=== PATIENT | female | born 1990 | race Two or more races ===

== ENCOUNTER 2017-11-03 06:44 | Day surgery (SDC) | payer OTHER ==
[~2017-11-03 06:44] MED LIST: CIPRO500 MG; DOLOGESIC CAPLE1 TAB; FLAGYL375 MG; FLAGYL500MG; HIBICLENS118 ML TP; INTESTINEX1 CAP PO; MOTRIN800 MG PO; NASONEX17 GM NS; PERCOCET 10-3251 TAB; SEPTRA 80/400 T1 TAB; SEPTRA DS TABLE1 TAB PO; ZITHROMAX TRI-500 MG PO; ZITHROMAX500 MG PO; ZYNCOF 20-400120 ML PO
== END 2017-11-03 10:35 | disposition home or self-care (01) ==
LOC: AMB-ENDOS 06:44 → CIR.AMB 09:30 → AMB-ENDOS 09:30
DX: K50.10 Crohn's disease of large intestine without complications (principal); K63.89 Other specified diseases of intestine

== ENCOUNTER → 2018-07-09 | Emergency (ER) | payer OTHER ==
[~2018-07-09] VITALS: Ht 157.5 cm; Wt 67.1 kg
== END | disposition left against medical advice (07) ==
LOC: ER 11:12
DX: Z53.20 Procedure and treatment not carried out because of patient's decision for unspecified reasons (principal)

== ENCOUNTER 2018-10-26 08:56 | Outpatient (CLI) | payer OTHER | END 2018-10-26 09:07 | disposition home or self-care (01) | LOC: TOM 08:56 | DX: N13.4 Hydroureter (principal) ==

== ENCOUNTER 2018-10-26 10:55 | Outpatient (CLI) | payer OTHER | END 2018-10-26 20:16 | disposition home or self-care (01) | LOC: LAB 10:55 | DX: N30.00 Acute cystitis without hematuria (principal) ==

== ENCOUNTER 2018-11-13 13:13 | Emergency (ER) | payer OTHER ==
[~2018-11-13] VITALS: Ht 157.5 cm; Wt 63.5 kg
[2018-11-13] MEDS ORDERED: HYDRALAZINE HCL25 MG (13:36)
[2018-11-13] MEDS ORDERED: TOPROL XL25 M1 (13:36)
== END 2018-11-13 19:50 | disposition home or self-care (01) ==
LOC: ER 13:13
DX: J35.01 Chronic tonsillitis (principal); R13.19 Other dysphagia; R07.0 Pain in throat

== ENCOUNTER 2019-01-30 07:06 | Outpatient (CLI) | payer OTHER ==
[~2019-01-30 07:06] MED LIST changes: +HYDRALAZINE HCL25 MG; +TOPROL XL25 M1
== END 2019-01-30 07:16 | disposition home or self-care (01) ==
LOC: LAB 07:06
DX: N13.4 Hydroureter (principal)

== ENCOUNTER 2019-01-31 09:10 | Outpatient (CLI) | payer OTHER | END 2019-01-31 09:13 | disposition home or self-care (01) | LOC: TOM 09:10 | DX: N13.4 Hydroureter (principal) ==

== ENCOUNTER 2019-02-27 09:59 | Outpatient (CLI) | payer OTHER | END 2019-02-27 10:13 | disposition home or self-care (01) | LOC: RX STUDY 09:59 | DX: R13.19 Other dysphagia (principal) ==

== ENCOUNTER 2019-03-23 20:16 | Day surgery (SDC) | payer OTHER ==
[~2019-03-23] VITALS: Ht 157.5 cm; Wt 68.9 kg
[2019-03-23] MEDS ORDERED: MILLIPRED5 MG (20:39)
== END 2019-03-24 13:00 | disposition home or self-care (01) ==
LOC: ER 20:16 → CIR.AMB 03-24 07:00 → SEC-K 03-24 08:41 → ER 03-24 08:41 → O/R 03-24 08:41 → EDSTATUS 03-24 11:30 → SEC-K 03-24 12:51 → O/R 03-24 12:51 → CIR.AMB 03-24 13:00 → O/R 03-24 17:40
DX: T83.091A Other mechanical complication of indwelling urethral catheter, initial encounter (principal)

== ENCOUNTER 2019-04-10 18:04 | Emergency (ER) | payer OTHER ==
[~2019-04-10] VITALS: Ht 157.5 cm; Wt 68.0 kg
[~2019-04-10 18:04] MED LIST changes: +MILLIPRED5 MG
[2019-04-10] MEDS ORDERED: FLAGYL500MG PO (21:40)
[2019-04-10] MEDS ORDERED: CIPRO500 MG PO (21:40)
== END 2019-04-10 21:46 | disposition home or self-care (01) ==
LOC: ER 18:04
DX: N39.0 Urinary tract infection, site not specified (principal)

== ENCOUNTER 2019-04-28 08:03 | Outpatient (CLI) | payer OTHER ==
[~2019-04-28 08:03] MED LIST changes: +CIPRO500 MG PO; +FLAGYL500MG PO
== END 2019-04-28 13:21 | disposition home or self-care (01) ==
LOC: LAB 08:03
DX: N13.4 Hydroureter (principal); N30.00 Acute cystitis without hematuria

== ENCOUNTER 2019-06-06 10:21 | Outpatient (CLI) | payer OTHER | END 2019-06-06 15:00 | disposition home or self-care (01) | LOC: LAB 10:21 | DX: N20.0 Calculus of kidney (principal) ==

== ENCOUNTER → 2019-06-07 | Outpatient (CLI) | payer OTHER | END | disposition home or self-care (01) | LOC: MRI 07:15 | DX: Q39.3 Congenital stenosis and stricture of esophagus (principal) | CPT/HCPCS: 72142; 72147 ==

== ENCOUNTER 2019-07-10 09:25 | Outpatient (CLI) | payer OTHER | END 2019-07-10 09:32 | disposition home or self-care (01) | LOC: LAB 09:25 | DX: Z92.25 Personal history of immunosuppression therapy (principal); Z11.4 Encounter for screening for human immunodeficiency virus [HIV]; K50.113 Crohn's disease of large intestine with fistula ==

== ENCOUNTER 2019-07-10 10:51 | Outpatient (CLI) | payer OTHER | END 2019-07-10 10:56 | disposition home or self-care (01) | LOC: TOM 10:51 | DX: K50.113 Crohn's disease of large intestine with fistula (principal); Z93.3 Colostomy status; N28.89 Other specified disorders of kidney and ureter; N18.2 Chronic kidney disease, stage 2 (mild); Z92.25 Personal history of immunosuppression therapy; K22.2 Esophageal obstruction ==

== ENCOUNTER 2019-07-26 18:55 | Emergency (ER) | payer OTHER ==
[~2019-07-26] VITALS: Ht 157.5 cm; Wt 70.8 kg
== END 2019-07-26 22:22 | disposition home or self-care (01) ==
LOC: ER 18:55
DX: N39.0 Urinary tract infection, site not specified (principal); R50.9 Fever, unspecified

== ENCOUNTER → 2019-07-26 | Outpatient (CLI) | payer OTHER | END | disposition home or self-care (01) | LOC: TOM 09:15 | DX: N13.4 Hydroureter (principal) ==

== ENCOUNTER 2019-07-29 09:36 | Outpatient (CLI) | payer OTHER | END 2019-07-29 09:44 | disposition home or self-care (01) | LOC: LAB 09:36 | DX: N13.4 Hydroureter (principal) ==

== ENCOUNTER 2019-09-05 08:39 | Outpatient (CLI) | payer OTHER | END 2019-09-05 09:42 | disposition home or self-care (01) | LOC: LAB 08:39 | DX: Z79.52 Long term (current) use of systemic steroids (principal) ==

== ENCOUNTER 2019-09-26 16:29 | Emergency (ER) | payer OTHER ==
[~2019-09-26] VITALS: Ht 157.5 cm; Wt 68.0 kg
[2019-09-26] MEDS ORDERED: STELARA130 MG/26 (16:35)
[2019-09-26] MEDS ORDERED: PRISTIQ ER50 MG (16:36)
[2019-09-26] MEDS ORDERED: NEXIUM40 M1 (16:36)
[2019-09-27] MEDS ORDERED: TYLENOL-CODEINE1 TA1 PO (06:56)
== END 2019-09-26 18:57 | disposition home or self-care (01) ==
LOC: ER 16:29
DX: N39.0 Urinary tract infection, site not specified (principal)

== ENCOUNTER 2019-09-27 00:42 | Emergency (ER) | payer OTHER ==
[~2019-09-27] VITALS: Ht 157.5 cm; Wt 68.0 kg
[~2019-09-27 00:42] MED LIST changes: +NEXIUM40 M1; +PRISTIQ ER50 MG; +STELARA130 MG/26
[2019-09-27] MEDS ORDERED: TYLENOL-CODEINE1 TA1 PO (06:56)
== END 2019-09-27 07:34 | disposition home or self-care (01) ==
LOC: ER 00:42
DX: M54.89 Other dorsalgia (principal)

== ENCOUNTER → 2019-10-10 09:47 | Outpatient (CLI) | payer OTHER ==
[~2019-10-10 09:47] MED LIST changes: +TYLENOL-CODEINE1 TA1 PO
== END | disposition home or self-care (01) ==
LOC: LAB 09:47
DX: N30.00 Acute cystitis without hematuria (principal); N18.9 Chronic kidney disease, unspecified

== ENCOUNTER 2019-10-16 09:10 | Outpatient (CLI) | payer OTHER | END 2019-10-16 09:23 | disposition home or self-care (01) | LOC: LAB 09:10 | DX: N80.0 Endometriosis of uterus (principal) ==

== ENCOUNTER 2019-10-17 12:17 | Outpatient (CLI) | payer OTHER | END 2019-10-17 12:30 | disposition home or self-care (01) | LOC: RAD 12:17 | DX: N13.4 Hydroureter (principal) ==

== ENCOUNTER 2019-10-25 09:15 | Day surgery (SDC) | payer OTHER ==
[~2019-10-25 09:15] MED LIST changes: +LEXAPRO5 MG PO
== END 2019-10-25 16:35 | disposition home or self-care (01) ==
LOC: CIR.AMB 09:15
PROVIDERS: ATTEND Urology
DX: N13.5 Crossing vessel and stricture of ureter without hydronephrosis (principal)

== ENCOUNTER → 2019-11-15 13:36 | Outpatient (CLI) | payer OTHER | END | disposition home or self-care (01) | LOC: LAB 13:36 | PROVIDERS: ATTEND Urology | DX: N30.00 Acute cystitis without hematuria (principal) ==

== ENCOUNTER 2019-11-24 16:57 | Emergency (ER) | payer OTHER ==
[~2019-11-24] VITALS: Ht 157.5 cm; Wt 64.4 kg
== END 2019-11-24 18:34 | disposition home or self-care (01) ==
LOC: ER 16:57
DX: L27.1 Localized skin eruption due to drugs and medicaments taken internally (principal); T43.226A Underdosing of selective serotonin reuptake inhibitors, initial encounter

== ENCOUNTER → 2020-01-08 09:59 | Outpatient (CLI) | payer OTHER ==
[~2020-01-08 09:59] MED LIST changes: +LEVAQUIN500 MG PO; +PRISTIQ25 MG PO
== END | disposition home or self-care (01) ==
LOC: LAB 09:59
PROVIDERS: ATTEND Internal Medicine Nephrology
DX: N18.2 Chronic kidney disease, stage 2 (mild) (principal); R80.0 Isolated proteinuria

== ENCOUNTER 2020-02-05 19:40 | Emergency (ER) | payer OTHER ==
[~2020-02-05] VITALS: Ht 157.5 cm; Wt 70.8 kg
[~2020-02-05 19:40] MED LIST changes: -LEVAQUIN500 MG PO; -PRISTIQ25 MG PO
[2020-02-05] MEDS ORDERED: PRISTIQ25 MG PO (19:54)
[2020-02-06] MEDS ORDERED: LEVAQUIN500 MG PO (06:39)
== END 2020-02-06 06:48 | disposition home or self-care (01) ==
LOC: ER 19:40
DX: N12 Tubulo-interstitial nephritis, not specified as acute or chronic (principal); Z20.828 Contact with and (suspected) exposure to other viral communicable diseases

== ENCOUNTER 2020-02-12 07:45 | Outpatient (CLI) | payer OTHER ==
[~2020-02-12 07:45] MED LIST changes: +LEVAQUIN500 MG PO; +PRISTIQ25 MG PO
== END 2020-02-12 08:02 | disposition home or self-care (01) ==
LOC: LAB 07:45
PROVIDERS: ATTEND Urology
DX: N30.00 Acute cystitis without hematuria (principal); N13.4 Hydroureter

== ENCOUNTER 2020-02-26 10:57 | Outpatient (CLI) | payer OTHER | END 2020-02-26 15:00 | disposition home or self-care (01) | LOC: LAB 10:57 | DX: K50.813 Crohn's disease of both small and large intestine with fistula (principal) ==

== ENCOUNTER → 2020-03-13 09:09 | Outpatient (CLI) | payer OTHER | END | disposition home or self-care (01) | LOC: LAB 09:09 | PROVIDERS: ATTEND Surgery | DX: K50.113 Crohn's disease of large intestine with fistula (principal); K50.118 Crohn's disease of large intestine with other complication; Z93.3 Colostomy status; R13.14 Dysphagia, pharyngoesophageal phase ==

== ENCOUNTER 2020-03-29 08:27 | Outpatient (CLI) | payer OTHER | END 2020-03-29 08:40 | disposition home or self-care (01) | LOC: RX STUDY 08:27 | DX: N28.89 Other specified disorders of kidney and ureter (principal); K50.113 Crohn's disease of large intestine with fistula; Z93.3 Colostomy status; N18.2 Chronic kidney disease, stage 2 (mild); Z92.25 Personal history of immunosuppression therapy ==

== ENCOUNTER → 2020-04-17 09:18 | Outpatient (CLI) | payer OTHER | END | disposition home or self-care (01) | LOC: LAB 09:18 | PROVIDERS: ATTEND Urology | DX: N30.00 Acute cystitis without hematuria (principal) ==

== ENCOUNTER 2020-06-04 08:53 | Outpatient (CLI) | payer OTHER | END 2020-06-04 09:05 | disposition home or self-care (01) | LOC: LAB 08:53 | PROVIDERS: ATTEND Internal Medicine Nephrology | DX: N18.2 Chronic kidney disease, stage 2 (mild) (principal); R80.0 Isolated proteinuria ==

== ENCOUNTER 2020-06-19 10:21 | Outpatient (CLI) | payer OTHER | END 2020-06-19 10:36 | disposition home or self-care (01) | LOC: LAB 10:21 | DX: K50.80 Crohn's disease of both small and large intestine without complications (principal) ==

== ENCOUNTER 2020-06-27 08:46 | Outpatient (CLI) | payer OTHER | END 2020-06-27 10:03 | disposition home or self-care (01) | LOC: LAB 08:46 | PROVIDERS: ATTEND Urology | DX: N30.00 Acute cystitis without hematuria (principal) ==

== ENCOUNTER 2020-07-17 06:00 | Day surgery (SDC) | payer OTHER ==
[~2020-07-17 06:00] MED LIST changes: +NEXIUM40 M1 PO; +QUESTRAN PACKET4 GM PO; +STELARA90 MG/1 ML
== END 2020-07-17 13:15 | disposition home or self-care (01) ==
LOC: CIR.AMB 06:00
PROVIDERS: ATTEND Urology
DX: N13.5 Crossing vessel and stricture of ureter without hydronephrosis (principal); Z20.822 Contact with and (suspected) exposure to COVID-19

== ENCOUNTER 2020-08-24 08:20 | Outpatient (CLI) | payer OTHER | END 2020-08-24 08:28 | disposition home or self-care (01) | LOC: LAB 08:20 | PROVIDERS: ATTEND Internal Medicine Nephrology | DX: M83.1 Senile osteomalacia (principal); N39.8 Other specified disorders of urinary system ==

== ENCOUNTER → 2020-12-07 | Outpatient (CLI) | payer OTHER ==
[~2020-12-07] MED LIST changes: +8HR ARTHRITIS650 M1 PO; +CIPROFLOXACIN500 MG; +ESCITALOPRAM OX10 MG; +NEURONTIN300 MG PO; +SIMETHICONE80 MG PO
== END | disposition home or self-care (01) ==
LOC: LAB 07:57
PROVIDERS: ATTEND Surgery
DX: R13.14 Dysphagia, pharyngoesophageal phase (principal); Z93.3 Colostomy status; K50.118 Crohn's disease of large intestine with other complication; K50.113 Crohn's disease of large intestine with fistula

== ENCOUNTER → 2020-12-26 09:18 | Outpatient (CLI) | payer OTHER | END | disposition home or self-care (01) | LOC: LAB 09:18 | PROVIDERS: ATTEND Urology | DX: N13.4 Hydroureter (principal); N30.00 Acute cystitis without hematuria ==

== ENCOUNTER 2021-01-01 09:00 | Inpatient (IN) | payer OTHER ==
[~2021-01-01] VITALS: Ht 157.5 cm; Wt 71.2 kg
[~2021-01-01 09:00] MED LIST changes: -8HR ARTHRITIS650 M1 PO; -CIPROFLOXACIN500 MG; -ESCITALOPRAM OX10 MG; -NEURONTIN300 MG PO; -SIMETHICONE80 MG PO
[2021-01-08] MEDS ORDERED: ESCITALOPRAM OX10 MG (11:22)
[2021-01-08] MEDS ORDERED: CIPROFLOXACIN500 MG (11:22)
[2021-01-13] MEDS ORDERED: SIMETHICONE80 MG PO (16:25)
[2021-01-13] MEDS ORDERED: NEURONTIN300 MG PO (16:25)
[2021-01-13] MEDS ORDERED: 8HR ARTHRITIS650 M1 PO (16:25)
== END 2021-01-13 17:39 | disposition home or self-care (01) | DRG 329 ==
LOC: O/R 01-08 06:01 → SURH 01-08 07:00 → O/R 01-08 10:42 → SURG 01-10 10:28
PROVIDERS: Surgery; ADMIT Urology; ATTEND Urology
PROC: 0DNW4ZZ Release Peritoneum, Percutaneous Endoscopic Approach (ICD-10-PCS; 2021-01-08)
PROC: 0T174Z7 Bypass Left Ureter to Left Ureter, Percutaneous Endoscopic Approach (ICD-10-PCS; 2021-01-08)
PROC: 0T9B80Z Drainage of Bladder with Drainage Device, Via Natural or Artificial Opening Endoscopic (ICD-10-PCS; 2021-01-08)
PROC: 4A033R1 Measurement of Arterial Saturation, Peripheral, Percutaneous Approach (ICD-10-PCS; 2021-01-08)
PROC: 0BH17EZ Insertion of Endotracheal Airway into Trachea, Via Natural or Artificial Opening (ICD-10-PCS; 2021-01-08)
PROC: 5A1935Z Respiratory Ventilation, Less than 24 Consecutive Hours (ICD-10-PCS; 2021-01-08)
PROC: 0D1E4Z4 Bypass Large Intestine to Cutaneous, Percutaneous Endoscopic Approach (ICD-10-PCS; 2021-01-08)
PROC: 0DBN4ZZ Excision of Sigmoid Colon, Percutaneous Endoscopic Approach (ICD-10-PCS; principal; 2021-01-08 07:00)
PROC: 0TS Urinary System, Reposition (ICD-10-PCS; 2021-01-08 07:00)
PROC: 30233R1 Transfusion of Nonautologous Platelets into Peripheral Vein, Percutaneous Approach (ICD-10-PCS; 2021-01-10)
DX: Z43.3 Encounter for attention to colostomy (principal); J95.821 Acute postprocedural respiratory failure; K50.118 Crohn's disease of large intestine with other complication; E87.2 Acidosis; N13.4 Hydroureter; R13.14 Dysphagia, pharyngoesophageal phase; F41.9 Anxiety disorder, unspecified; K66.0 Peritoneal adhesions (postprocedural) (postinfection); K52.89 Other specified noninfective gastroenteritis and colitis; N35.82 Other urethral stricture, female

== ENCOUNTER 2021-01-18 09:02 | Outpatient (CLI) | payer OTHER ==
[~2021-01-18 09:02] MED LIST changes: +8HR ARTHRITIS650 M1 PO; +CIPROFLOXACIN500 MG; +ESCITALOPRAM OX10 MG; +NEURONTIN300 MG PO; +SIMETHICONE80 MG PO
== END 2021-01-18 13:24 | disposition home or self-care (01) ==
LOC: LAB 09:02
PROVIDERS: ATTEND Urology
DX: N30.00 Acute cystitis without hematuria (principal)

== ENCOUNTER → 2021-02-11 08:58 | Outpatient (CLI) | payer OTHER | END | disposition home or self-care (01) | LOC: LAB 08:58 | PROVIDERS: ATTEND Urology | DX: N13.4 Hydroureter (principal) ==

== ENCOUNTER → 2021-02-21 10:27 | Outpatient (CLI) | payer OTHER | END | disposition home or self-care (01) | LOC: LAB 10:27 | DX: K50.113 Crohn's disease of large intestine with fistula (principal); Z93.3 Colostomy status; N28.89 Other specified disorders of kidney and ureter; N18.2 Chronic kidney disease, stage 2 (mild); Z92.25 Personal history of immunosuppression therapy ==

== ENCOUNTER 2021-02-24 08:26 | Outpatient (CLI) | payer OTHER | END 2021-02-24 08:34 | disposition home or self-care (01) | LOC: SONOGRAMA 08:26 → MAMO-SONO 15:00 | PROVIDERS: ATTEND Urology | DX: N13.4 Hydroureter (principal) ==

== ENCOUNTER → 2021-03-01 09:09 | Outpatient (CLI) | payer OTHER | END | disposition home or self-care (01) | LOC: LAB 09:09 | DX: M83.1 Senile osteomalacia (principal); R80.8 Other proteinuria ==

== ENCOUNTER → 2021-03-04 11:35 | Outpatient (CLI) | payer OTHER | END | disposition home or self-care (01) | LOC: LAB 11:35 | PROVIDERS: ATTEND Urology | DX: N13.39 Other hydronephrosis (principal); N30.00 Acute cystitis without hematuria ==

== ENCOUNTER → 2021-04-03 10:32 | Outpatient (CLI) | payer OTHER | END | disposition home or self-care (01) | LOC: LAB 10:32 | PROVIDERS: ATTEND Urology | DX: E11.9 Type 2 diabetes mellitus without complications (principal); N30.00 Acute cystitis without hematuria ==

== ENCOUNTER 2021-04-21 13:29 | Outpatient (CLI) | payer OTHER | END 2021-04-21 13:39 | disposition home or self-care (01) | LOC: LAB 13:29 | DX: N28.89 Other specified disorders of kidney and ureter (principal); K50.113 Crohn's disease of large intestine with fistula; Z93.3 Colostomy status; N18.2 Chronic kidney disease, stage 2 (mild); Z92.25 Personal history of immunosuppression therapy; R13.19 Other dysphagia ==

== ENCOUNTER 2021-04-29 09:57 | Outpatient (CLI) | payer OTHER | END 2021-04-29 10:10 | disposition home or self-care (01) | LOC: TOM 09:57 | PROVIDERS: ATTEND Urology | DX: N39.0 Urinary tract infection, site not specified (principal); N13.4 Hydroureter ==

== ENCOUNTER 2021-06-26 09:26 | Outpatient (CLI) | payer OTHER | END 2021-06-27 08:10 | disposition home or self-care (01) | LOC: SONOGRAMA 09:26 | PROVIDERS: ATTEND Urology | DX: N39.0 Urinary tract infection, site not specified (principal); N13.4 Hydroureter ==

== ENCOUNTER 2021-06-26 11:25 | Outpatient (CLI) | payer OTHER | END 2021-06-26 11:32 | disposition home or self-care (01) | LOC: LAB 11:25 | PROVIDERS: ATTEND Internal Medicine Nephrology | DX: N18.2 Chronic kidney disease, stage 2 (mild) (principal); R80.0 Isolated proteinuria ==

== ENCOUNTER → 2021-07-03 11:27 | Outpatient (CLI) | payer OTHER | END | disposition home or self-care (01) | LOC: LAB 11:27 | PROVIDERS: ATTEND Urology | DX: N30.00 Acute cystitis without hematuria (principal); N13.4 Hydroureter ==

== ENCOUNTER 2021-08-25 06:55 | Outpatient (CLI) | payer OTHER | END 2021-08-25 07:10 | disposition home or self-care (01) | LOC: LAB 06:55 | PROVIDERS: ATTEND Internal Medicine | DX: K50.813 Crohn's disease of both small and large intestine with fistula (principal) ==

== ENCOUNTER 2021-09-25 09:03 | Outpatient (CLI) | payer OTHER | END 2021-09-25 09:04 | disposition home or self-care (01) | LOC: TOM 09:03 | PROVIDERS: ATTEND Urology | DX: N13.4 Hydroureter (principal) ==

== ENCOUNTER 2021-09-25 10:06 | Outpatient (CLI) | payer OTHER | END 2021-09-25 10:19 | disposition home or self-care (01) | LOC: LAB 10:06 | PROVIDERS: ATTEND Urology | DX: N13.4 Hydroureter (principal) ==

== ENCOUNTER 2021-10-25 10:32 | Emergency (ER) | payer OTHER ==
[~2021-10-25] VITALS: Ht 157.5 cm; Wt 70.3 kg
[2021-10-25] MEDS ORDERED: FLUOXETINE HCL10 M1 PO (12:02)
== END 2021-10-25 16:22 | disposition home or self-care (01) ==
LOC: ER 10:32
DX: N30.91 Cystitis, unspecified with hematuria (principal); Z91.011 Allergy to milk products; Z88.6 Allergy status to analgesic agent; Z93.3 Colostomy status; Z87.19 Personal history of other diseases of the digestive system

== ENCOUNTER 2021-11-20 08:01 | Outpatient (CLI) | payer OTHER ==
[~2021-11-20 08:01] MED LIST changes: +FLUOXETINE HCL10 M1 PO
== END 2021-11-20 08:45 | disposition home or self-care (01) ==
LOC: LAB 08:01
PROVIDERS: ATTEND Internal Medicine
DX: K50.014 Crohn's disease of small intestine with abscess (principal)

== ENCOUNTER 2022-06-25 16:11 | Emergency (ER) | payer OTHER ==
[~2022-06-25] VITALS: Ht 157.5 cm; Wt 70.3 kg
[~2022-06-25 16:11] MED LIST changes: +DESVENLAFAXINE50 M3
[2022-06-25] MEDS ORDERED: PREDNISOLO15 MG/5 ML PO (19:23)
== END 2022-06-25 19:27 | disposition home or self-care (01) ==
LOC: ER 16:11
DX: K22.89 Other specified disease of esophagus (principal); Z91.011 Allergy to milk products; Z88.8 Allergy status to other drugs, medicaments and biological substances; Z91.018 Allergy to other foods

== ENCOUNTER 2022-07-15 09:03 | Outpatient (CLI) | payer OTHER ==
[~2022-07-15 09:03] MED LIST changes: +PREDNISOLO15 MG/5 ML PO
== END 2022-07-15 11:01 | disposition home or self-care (01) ==
LOC: LAB 09:03
DX: Z00.00 Encounter for general adult medical examination without abnormal findings (principal); K50.113 Crohn's disease of large intestine with fistula

== ENCOUNTER 2022-08-01 08:44 | Outpatient (CLI) | payer OTHER | END 2022-08-01 08:45 | disposition home or self-care (01) | LOC: LAB 08:44 | PROVIDERS: ATTEND Internal Medicine Nephrology | DX: N18.2 Chronic kidney disease, stage 2 (mild) (principal); N86 Erosion and ectropion of cervix uteri ==

== ENCOUNTER 2023-01-06 12:12 | Emergency (ER) | payer OTHER ==
[~2023-01-06] VITALS: Ht 157.5 cm; Wt 72.6 kg
[2023-01-06] MEDS ORDERED: TUSNEL LIQUID178 ML PO (12:59)
[2023-01-06] MEDS ORDERED: PROAIR RESPICL90 MCG IH (12:59)
[2023-01-06] MEDS ORDERED: PAXLOVID 300-11 EACH PO (12:59)
== END 2023-01-06 13:09 | disposition home or self-care (01) ==
LOC: ER 12:12 → EMR PED 12:17 → ER 13:09
DX: U07.1 COVID-19 (principal); R50.9 Fever, unspecified; Z91.011 Allergy to milk products; Z91.018 Allergy to other foods; Z88.6 Allergy status to analgesic agent

== ENCOUNTER → 2023-03-02 08:50 | Outpatient (CLI) | payer OTHER ==
[~2023-03-02 08:50] MED LIST changes: +PAXLOVID 300-11 EACH PO; +PROAIR RESPICL90 MCG IH; +TUSNEL LIQUID178 ML PO
[2023-03-02 09:19] LABS: HEMATOCRIT 37.3 % (36.0-45.00); HEMOGLOBIN 12.5 g/dL (12.0-15.00); MEAN CELL VOLUME 79.8 fL (80.00-100.00); MEAN CORPUSCULAR HEMOGLOBIN 26.7 pg (27.00-32.0); MEAN CORPUSCULAR HGB CONC 33.5 g/dl (32.0-36.0); PLATELET COUNT 432 K/uL (150-450); RED BLOOD COUNT 4.68 M/uL (4.00-6.00); RED CELL DISTRIBUTION WIDTH 15.1 % (11.5-14.5)
[2023-03-02 09:38] LABS: ERYTHROCYTE SEDIMENTATION RATE 74 mm/hr
[2023-03-02 10:03] LABS: ALBUMIN 3.2 gm/dL (3.4-5.0); BILIRUBIN TOTAL 0.29 mg/dL (0.3-1.2); CALCIUM 8.8 mg/dL (8.5-10.1); CREATININE SERUM 0.62 mg/dL (0.55-1.02); GFR 110.85; GLOBULINA 4.4 G/DL (2.4-3.5); POTASSIUM 3.79 mEq/L (3.5-5.1); TOTAL PROTEIN 7.6 gm/dL (6.4-8.2)
[2023-03-02 10:16] LABS: C-REACTIVE PROTEIN 0.6 MG/DL (0.00-0.29)
== END | disposition home or self-care (01) ==
LOC: LAB 08:50
DX: K50.113 Crohn's disease of large intestine with fistula (principal); Z88.6 Allergy status to analgesic agent; Z91.011 Allergy to milk products; Z91.018 Allergy to other foods

== ENCOUNTER 2023-12-06 09:50 | Inpatient (IN) | payer OTHER ==
[2023-12-02 10:56] LABS: PH,URINE 5.5 (5.0-8.0); URINE APPEARANCE Clear; URINE BILIRRUBIN Negative (NEGATIVE); URINE BLOOD Small; URINE COLOR Yellow; URINE GLUCOSE Negative (NEGATIVE); URINE LEUKOCYTE Trace; URINE NITRATE Negative; URINE UROBILINOGEN 0.2 E.U./dl
[2023-12-02 11:02] LABS: URINE BACTERIA 844.1 uL (0.0-1933); URINE EPITHELIAL CELLS 14.2 uL (0.0-38.8); URINE RBC 49.1 uL (0.0-20.8); URINE WBC 32.9 uL (0.0-23.2)
[2023-12-02 11:08] LABS: URINE PROTEIN 100 (NEGATIVE)
[2023-12-02 11:15] LABS: HEMATOCRIT 34.8 % (36.0-45.00); HEMOGLOBIN 11.7 g/dL (12.0-15.00); MEAN CELL VOLUME 74.5 fL (80.00-100.00); MEAN CORPUSCULAR HEMOGLOBIN 24.9 pg (27.00-32.0); MEAN CORPUSCULAR HGB CONC 33.5 g/dl (32.0-36.0); PLATELET COUNT 457 K/uL (150-450); RED BLOOD COUNT 4.67 M/uL (4.00-6.00); RED CELL DISTRIBUTION WIDTH 16.1 % (11.5-14.5)
[2023-12-02 11:42] LABS: INR 1.01; PARTIAL THROMBOPLASTIN TIME 29.4 SECONDS (22.0-34.0); PROTHROMBIN TIME 10.6 SECONDS (9.0-11.5)
[2023-12-02 11:48] LABS: ALBUMIN 3.5 gm/dL (3.4-5.0); BILIRUBIN TOTAL 0.38 mg/dL (0.3-1.2); CALCIUM 9.1 mg/dL (8.5-10.1); CREATININE SERUM 0.74 mg/dL (0.55-1.02); GFR 90.38; GLOBULINA 4.6 G/DL (2.4-3.5); POTASSIUM 4.06 mEq/L (3.5-5.1); TOTAL PROTEIN 8.1 gm/dL (6.4-8.2)
[~2023-12-06] VITALS: Ht 182.9 cm; Wt 165.6 kg
[~2023-12-06 09:50] MED LIST changes: +CEFTRIAXONE SODIUM 2,000 MG VIAL IV SCH; +METRONIDAZOLE/SODIUM CHLORIDE 500 MG/100 ML PIGGYBACK IV SCH; +PROZAC20 MG PO
[2023-12-06] MEDS ORDERED: CHLORHEXIDINE GLUCONATE 120 ML BOTTLE TOP ONE (14:30)
[2023-12-06] MEDS ORDERED: BUPIVACAINE HCL 30 ML VIAL IJ ONE (14:30)
[2023-12-06] MEDS ORDERED: LIDOCAINE HCL 1%/EPINEPHRINE 20ML VIAL IJ ONE (14:30)
[2023-12-06] MEDS ORDERED: RINGERS SOLUTION,LACTATED 1,000 ML IV SCH (16:30)
[2023-12-06] MEDS ORDERED: DEXTROSE 50 % IN WATER 0.5 G/ML DISP.SYRIN IV PRN (16:30)
[2023-12-06] MEDS ORDERED: MORPHINE SULFATE 4 MG/ML CARTRIDGE IV PRN (16:30)
[2023-12-06] MEDS ORDERED: ONDANSETRON HCL 2 MG/ML VIAL IV PRN (16:30)
[2023-12-06] MEDS ORDERED: METOCLOPRAMIDE HCL 5 MG/ML VIAL IV SCH (17:00)
[2023-12-06] MEDS ORDERED: HYOSCYAMINE SULFATE 0.125 MG TAB.SUBL SL SCH (17:00)
[2023-12-06] MEDS ORDERED: GABAPENTIN 300 MG CAPSULE PO SCH (17:00)
[2023-12-06] MEDS ORDERED: ACETAMINOPHEN 500 MG GEL..CAP PO SCH (20:00)
[2023-12-06] MEDS ORDERED: CELECOXIB 200 MG CAPSULE PO SCH (21:00)
[2023-12-06] MEDS ORDERED: FAMOTIDINE/PF 20 MG/2 ML VIAL IV PUSH SCH (21:00)
[2023-12-07 07:55] LABS: HEMATOCRIT 31.2 % (36.0-45.00); HEMOGLOBIN 10.3 g/dL (12.0-15.00); MEAN CELL VOLUME 74.4 fL (80.00-100.00); MEAN CORPUSCULAR HEMOGLOBIN 24.6 pg (27.00-32.0); MEAN CORPUSCULAR HGB CONC 33.1 g/dl (32.0-36.0); PLATELET COUNT 372 K/uL (150-450); RED BLOOD COUNT 4.19 M/uL (4.00-6.00); RED CELL DISTRIBUTION WIDTH 16.3 % (11.5-14.5)
[2023-12-07] MEDS ORDERED: LACTOBACILLUS ACIDOPHILUS 1 CAP CAP PO SCH (09:00)
[2023-12-07] MEDS ORDERED: PATIENTS OWN MEDICATION (MEDICAMENTO EN PISO) PO SCH (09:00)
[2023-12-07] MEDS ORDERED: FLUOXETINE HCL 20 MG CAPSULE PO SCH (09:00)
[2023-12-07 09:03] LABS: ALBUMIN 2.8 gm/dL (3.4-5.0); CALCIUM 8.2 mg/dL (8.5-10.1); CREATININE SERUM 0.65 mg/dL (0.55-1.02); GFR 104.97; MAGNESIUM 1.9 mg/dL (1.8-2.4); POTASSIUM 3.92 mEq/L (3.5-5.1)
[2023-12-07] MEDS ORDERED: Cyanocobalamin/Mecobalamin 1 TAB.SL SL SCH (12:19)
[2023-12-07] MEDS ORDERED: SOD FERRIC GLUC COMPLX/SUCROSE 62.5 MG in 0.9 % SODIUM CHLORIDE 50 ML IV SCH (12:19)
[2023-12-07] MEDS ORDERED: ENOXAPARIN SODIUM 40 MG/0.4 ML SYRINGE SUBCUTANEO SCH (17:00)
[2023-12-08 06:56] LABS: HEMOGLOBIN 9.7 g/dL (12.0-15.00); MEAN CELL VOLUME 75.5 fL (80.00-100.00); MEAN CORPUSCULAR HEMOGLOBIN 25.2 pg (27.00-32.0); MEAN CORPUSCULAR HGB CONC 33.4 g/dl (32.0-36.0); PLATELET COUNT 305 K/uL (150-450); RED BLOOD COUNT 3.84 M/uL (4.00-6.00); RED CELL DISTRIBUTION WIDTH 16.7 % (11.5-14.5)
[2023-12-08 07:05] LABS: CALCIUM 8.2 mg/dL (8.5-10.1); CREATININE SERUM 0.67 mg/dL (0.55-1.02); GFR 101.36; MAGNESIUM 1.9 mg/dL (1.8-2.4); PHOSPHOROUS 2.8 mg/dL (2.5-4.9); POTASSIUM 3.42 mEq/L (3.5-5.1)
[2023-12-08] MEDS ORDERED: POTASSIUM CHLORIDE 20MEQ/100ML H2O PB IV NR (08:45)
[2023-12-08] MEDS ORDERED: ENOXAPARIN SODIUM 40 MG/0.4 ML SYRINGE SUBCUTANEO SCH (09:00)
[2023-12-08] MEDS ORDERED: POTASSIUM CHLORIDE 8 MEQ TABLET PO STA (09:41)
== END 2023-12-08 13:33 | disposition home or self-care (01) | DRG 336 ==
LOC: CIR.AMB 09:50 → SURG 17:05 → O/R 17:05 → SURG 20:23
PROVIDERS: Internal Medicine Geriatric Medicine; ADMIT Surgery; ATTEND Surgery
PROC: 0WUF4JZ Supplement Abdominal Wall with Synthetic Substitute, Percutaneous Endoscopic Approach (ICD-10-PCS; 2023-12-06)
PROC: 0DN84ZZ Release Small Intestine, Percutaneous Endoscopic Approach (ICD-10-PCS; principal; 2023-12-06 07:00)
DX: K43.3 Parastomal hernia with obstruction, without gangrene (principal); K50.113 Crohn's disease of large intestine with fistula; R13.14 Dysphagia, pharyngoesophageal phase; F41.9 Anxiety disorder, unspecified; R13.12 Dysphagia, oropharyngeal phase

== ENCOUNTER 2024-03-04 08:37 | Outpatient (CLI) | payer OTHER ==
[~2024-03-04 08:37] MED LIST changes: -CEFTRIAXONE SODIUM 2,000 MG VIAL IV SCH; -METRONIDAZOLE/SODIUM CHLORIDE 500 MG/100 ML PIGGYBACK IV SCH
[2024-03-04 09:48] LABS: HEMATOCRIT 32.5 % (36.0-45.00); HEMOGLOBIN 10.7 g/dL (12.0-15.00); MEAN CELL VOLUME 73.8 fL (80.00-100.00); MEAN CORPUSCULAR HEMOGLOBIN 24.2 pg (27.00-32.0); MEAN CORPUSCULAR HGB CONC 32.7 g/dl (32.0-36.0); PLATELET COUNT 435 K/uL (150-450); RED BLOOD COUNT 4.41 M/uL (4.00-6.00); RED CELL DISTRIBUTION WIDTH 16.2 % (11.5-14.5)
[2024-03-04 09:49] LABS: ERYTHROCYTE SEDIMENTATION RATE 76 mm/hr
[2024-03-04 10:09] LABS: ALBUMIN 3.3 gm/dL (3.4-5.0); BILIRUBIN TOTAL 0.21 mg/dL (0.3-1.2); CALCIUM 8.8 mg/dL (8.5-10.1); CREATININE SERUM 0.77 mg/dL (0.55-1.02); GFR 85.81; GLOBULINA 4.2 G/DL (2.4-3.5); POTASSIUM 4.02 mEq/L (3.5-5.1); TOTAL PROTEIN 7.5 gm/dL (6.4-8.2)
[2024-03-04 10:17] LABS: C-REACTIVE PROTEIN 0.41 MG/DL (0.00-0.29)
== END 2024-03-04 08:39 | disposition home or self-care (01) ==
LOC: LAB 08:37
DX: K50.113 Crohn's disease of large intestine with fistula (principal)

== ENCOUNTER 2024-03-29 11:43 | Outpatient (CLI) | payer OTHER ==
[2024-03-29 12:43] LABS: HEMATOCRIT 33.1 % (36.0-45.00); HEMOGLOBIN 10.8 g/dL (12.0-15.00); MEAN CELL VOLUME 71.4 fL (80.00-100.00); MEAN CORPUSCULAR HEMOGLOBIN 23.2 pg (27.00-32.0); MEAN CORPUSCULAR HGB CONC 32.6 g/dl (32.0-36.0); PLATELET COUNT 453 K/uL (150-450); RED BLOOD COUNT 4.64 M/uL (4.00-6.00); RED CELL DISTRIBUTION WIDTH 16.6 % (11.5-14.5)
[2024-03-29 13:32] LABS: ALBUMIN 3.3 gm/dL (3.4-5.0); BILIRUBIN TOTAL 0.34 mg/dL (0.3-1.2); CALCIUM 8.8 mg/dL (8.5-10.1); CHOL HDL RATIO 4.4 (0-5.0); CREATININE SERUM 0.7 mg/dL (0.55-1.02); FREE TRIODOTIRONINE 2.79 pg/ml (2.18-3.98); GFR 95.79; GLOBULINA 4.5 G/DL (2.4-3.5); POTASSIUM 4.07 mEq/L (3.5-5.1); T4 TOTAL 9.82 UG/DL (4.8-13.9); TOTAL PROTEIN 7.8 gm/dL (6.4-8.2); TSH 1.71 uIU/mL (0.358-3.74)
[2024-03-31 10:11] LABS: LEUTEINIZING HORMONE 15.3 mIU/mL (.)
== END 2024-03-29 11:44 | disposition home or self-care (01) ==
LOC: LAB 11:43
PROVIDERS: ATTEND Dermatology
DX: L73.2 Hidradenitis suppurativa (principal); L70.0 Acne vulgaris

== ENCOUNTER 2024-07-29 09:41 | Outpatient (CLI) | payer OTHER ==
[2024-07-29 11:02] LABS: HEMATOCRIT 34.5 % (36.0-45.00); MEAN CORPUSCULAR HEMOGLOBIN 22.1 pg (27.00-32.0); PLATELET COUNT 412 K/uL (150-450); RED CELL DISTRIBUTION WIDTH 19.2 % (11.5-14.5)
[2024-07-29 11:03] LABS: ERYTHROCYTE SEDIMENTATION RATE 49 mm/hr; MEAN CELL VOLUME 68.9 fL (80.00-100.00)
[2024-07-29 11:19] LABS: ALBUMIN 3.4 gm/dL (3.4-5.0); ALKALINE PHOSPHATASE 121 U/L (50-136); ALT/SGPT 17 U/L (12-78); ANION GAP 2 (10.0-20.0); AST/SGOT 19 U/L (15-37); BILIRUBIN TOTAL 0.35 mg/dL (0.3-1.2); BLOOD UREA NITROGEN 9 mg/dL (7-18); BUN CREA RATIO 12 (7.0-25.0); CARBON DIOXIDE 30 mEq/L (21-32); CHLORIDE 108 mmol/L (98-107); CREATININE SERUM 0.77 mg/dL (0.55-1.02); GFR 85.81; GLOBULINA 4.3 G/DL (2.4-3.5); GLUCOSE FASTING 103 mg/dL (65-100); OSMOLALITY SERUM 271 MOSM/KG (275-295); SODIUM 136 mmol/L (136-145); TOTAL PROTEIN 7.7 gm/dL (6.4-8.2)
[2024-07-29 11:20] LABS: C-REACTIVE PROTEIN < 0.29 MG/DL (0.00-0.29)
== END 2024-07-29 09:48 | disposition home or self-care (01) ==
LOC: LAB 09:41
DX: K50.113 Crohn's disease of large intestine with fistula (principal)

== ENCOUNTER 2024-11-23 12:24 | Outpatient (CLI) | payer OTHER ==
[2024-11-23 13:13] LABS: BASO % 0.6 % (0.1-1.2); EOS # 0.29 (0.04-0.54); EOS % 3.1 % (0.7-7.0); LYMPH # 2.87 (1.18-3.74); LYMPH % 30.3 % (19.3-53.1); MEAN PLATELET VOLUME 10.40 fl (9.4-12.4); MONO # 0.77 (0.24-0.82); MONO % 8.1 % (4.7-12.5); NEUT # 5.46 (1.56-6.13); NEUT % 57.7 % (34.0-71.1); RED CELL DISTRIBUTION WIDTH 19.1 % (11.6-14.4)
[2024-11-23 13:18] LABS: ERYTHROCYTE SEDIMENTATION RATE 86 mm/hr (0-20)
[2024-11-23 14:07] LABS: ALT/SGPT 16 U/L (12-78); AST/SGOT 12 U/L (15-37); BILIRUBIN TOTAL 0.45 mg/dL (0.3-1.2); BUN CREA RATIO 18 (7.0-25.0); CREATININE SERUM 0.72 mg/dL (0.55-1.02); FE 28.0 ug/dl (50-170); GFR 92.72; GLOBULINA 4.2 G/DL (2.4-3.5); GLUCOSE FASTING 86 mg/dL (65-100); OSMOLALITY SERUM 279 MOSM/KG (275-295)
[2024-11-23 14:43] LABS: FOLIC ACID 11.09 ng/ml (4.78-20)
== END 2024-11-23 12:37 | disposition home or self-care (01) ==
LOC: LAB 12:24
DX: K50.113 Crohn's disease of large intestine with fistula (principal)

== ENCOUNTER 2024-11-27 11:14 | Outpatient (CLI) | payer OTHER | END 2024-11-27 11:17 | disposition home or self-care (01) | LOC: TOM 11:14 | DX: K46.9 Unspecified abdominal hernia without obstruction or gangrene (principal) ==